=== PATIENT | male | born 1985 | race Caucasian/White ===

== ENCOUNTER 2019-10-12 02:48 | Emergency (ER) | payer BC ==
[~2019-10-12] VITALS: Ht 175.3 cm; Wt 119.3 kg
[2019-10-12 02:55] VITALS: BP 135/77
--- NOTE | 2019-10-12 03:07 | NUR ---
TO ED 06, AMBULATORY.
--- NOTE | 2019-10-12 03:16 | NUR ---
34 Y/O MALE PRESENTS TO ED, C/O ABDOMINAL PAIN X1 DAY 12/12. PATIENT STATES PAIN HAS BEEN INTERMITTENT BUT WORSENING THIS MORNING. DENIES TAKING ANY MEDICATIONS FOR PAIN. C/O MILD NAUSEA AND VOMITING PRIOR COMING TO ED. BS ACTIVE X4 QUADRANTS. DENIES ANY SOB/DIFFICULTY BREATHING. DENIES CHEST PAIN. PT VSS. ERMD AWARE. WILL CONTINUE TO MONITOR.
[2019-10-12] MEDS ORDERED: NACL 0.9% 1,000 ML IV SCH (03:22)
[2019-10-12] MEDS ORDERED: ALUMINUM HYD/MAG/SIMETHICONE 30 ML, DICYCLOMINE HCL LIQUID 20 MG, LIDOCAINE VISCOUS 2% ... PO ONE ×3 (03:25)
[2019-10-12] MEDS ORDERED: ONDANSETRON 4 MG/2 ML VIAL IVP ONE (03:25)
[2019-10-12] MEDS ORDERED: KETOROLAC 30 MG/ML VIAL IVP ONE (03:25)
[2019-10-12 03:35] LABS: BASOPHILS # (AUTO) 0.1 K/uL (0.00-0.22); BASOPHILS % (AUTO) 0.7 % (0.0-2.0); EOSINOPHILS # (AUTO) 0.4 K/uL (0-0.4); EOSINOPHILS % (AUTO) 4.1 % (0.0-4.0); HEMATOCRIT 40.5 % (36-52); HEMOGLOBIN 13.8 g/dL (12.0-18.0); LYMPHOCYTES % (AUTO) 20.7 % (20.5-51.1); MEAN CORPUSCULAR HEMOGLOBIN 32 pg (27-31); MEAN CORPUSCULAR HGB CONC 34 g/dL (33-37); MONOCYTES # (AUTO) 0.9 K/uL (0.8-1.0); NEUTROPHILS # (AUTO) 6.2 K/uL (1.8-7.7); NEUTROPHILS % (AUTO) 65.5 % (42.2-75.2); PLATELET COUNT (AUTO) 304 K/uL (140-450); RED BLOOD CELL COUNT(AUTO) 4.31 MIL/uL (4.20-6.10); RED CELL DISTRIBUTION WIDTH 13.2 % (11.6-13.7); WHITE BLOOD COUNT (AUTO) 9.5 K/uL (4.8-10.8)
[2019-10-12] MEDS ORDERED: ALUMINUM HYD/MAG/SIMETHICONE 30 ML UDC ONE (03:36)
[2019-10-12] MEDS ORDERED: DICYCLOMINE HCL LIQUID 10 MG/5 ML UDC ONE (03:36)
[2019-10-12] MEDS ORDERED: LIDOCAINE VISCOUS 2% 20 ML UDC ONE (03:36)
[2019-10-12 03:55] LABS: APPEARANCE,URINE CLEAR (CLEAR); BILIRUBIN,URINE NEGATIVE (NEGATIVE); BLOOD, URINE NEGATIVE (NEGATIVE); COLOR,URINE YELLOW (YELLOW); LEUKOCYTE ESTERASE ,URINE NEGATIVE (NEGATIVE); NITRITE, URINE NEGATIVE (NEGATIVE); UGLUCOSE NEGATIVE (NEGATIVE)
--- NOTE | 2019-10-12 03:55 | NUR ---
URINE COLLECTED AND SENT TO LAB AT THIS TIME.
[2019-10-12 03:58] LABS: ALBUMIN 3.5 g/dL (3.4-5.0); ANION GAP 11.4 (8-16); CARBON DIOXIDE 27.6 mmol/L (21-32); TOTAL BILIRUBIN 0.5 mg/dL (0.0-1.0)
--- NOTE | 2019-10-12 04:05 | NUR ---
Dr. Monteiro examining patient.
[2019-10-12 06:00] VITALS: BP 126/66
--- NOTE | 2019-10-12 06:00 | NUR ---
PT DISCHARGED WITH PAPERWORK. EDUCATED PT REGARDING MEDICATIONS AND D/C INSTRUCTIONS. PT VERBALIZED UNDERSTANDING OF TEACHING. TOLD PT TO FOLLOW UP WITH PCP AND WHEN TO RETURN TO ED. PT AT STABLE CONDITION. ALL QUESTIONS ANSWERED.
--- NOTE | 2019-10-14 07:51 | NUR ---
LATE ENTRY- NORMAL SALINE 0.9% DISCONTINUED AT 0600.
== END 2019-10-12 06:00 | disposition home or self-care (01) ==
LOC: MED 02:48
DX: K29.20 Alcoholic gastritis without bleeding (principal); R11.10 Vomiting, unspecified; Z88.0 Allergy status to penicillin; Z98.890 Other specified postprocedural states
CPT/HCPCS: 36415; 80053; 81003; 82150; 83690; 85025; 96361; 96374; 96375; 99284; G0482; J1885; J2405; J7030; 99285; 99291

== ENCOUNTER 2020-08-04 17:25 | Emergency (ER) | payer BC ==
[~2020-08-04] VITALS: Ht 175.3 cm; Wt 120.2 kg
[2020-08-04 17:38] VITALS: BP 146/85
--- NOTE | 2020-08-04 17:42 | NUR ---
PT TO ER LOBBY TO WAIT FOR FURTHER EVALUATION.
--- NOTE | 2020-08-04 17:52 | NUR ---
35 Y/O MALE C/O LEFT UPPER TOOTHACHE 01/12 DESCRIBES SHARP/ACHING RADIATES INTO [place] X3DAYS. PT STATES HE SAW DENTIST YESTERDAY AND GIVEN A REFERRAL TO ENDODONTICS BUT UNABLE TO GET APPOINTMENT UNTIL 08/14/20. DENTIST TOLD TO PT TO COME TO ER IF PAIN WAS UNBEARABLE. PT STATES HE HAS NOT SLEPT IN 2 DAYS. PMH: PANCREATITIS ALLERGIES: PCN
--- NOTE | 2020-08-04 17:58 | NUR ---
SEBLE MAGANA IN TRIAGE WITH PT FOR FURTHER EVALUATION.
[2020-08-04] MEDS ORDERED: MORPHINE SULFATE 4 MG/ML SYR IM ONE (18:00)
[2020-08-04] MEDS ORDERED: CLIN300C6 PO ×2 (18:06→18:49)
[2020-08-04] MEDS ORDERED: ACET-8386 PO ×2 (18:06→18:49)
[2020-08-04 18:22] VITALS: BP 146/85
--- NOTE | 2020-08-04 18:22 | NUR ---
Patient discharged with v/s stable. Written and verbal after care instructions given and explained. Patient alert, oriented and verbalized understanding of instructions. Ambulatory with steady gait. All questions addressed prior to discharge. ID band removed. Patient advised to follow up with PMD. Rx of NORCO 5MG-325MG PO Q8H PRN, AND CLINDAMYCIN 300MG TID given. Patient educated on indication of medication including possible reaction and side effects. Opportunity to ask questions provided and answered.
== END 2020-08-04 18:22 | disposition home or self-care (01) ==
LOC: MED 17:25
DX: K08.89 Other specified disorders of teeth and supporting structures (principal); Z88.0 Allergy status to penicillin; Z79.899 Other long term (current) drug therapy
CPT/HCPCS: 96372; 99283; J2270

== ENCOUNTER 2020-09-05 20:05 | Emergency (ER) | payer BC ==
[~2020-09-05] VITALS: Ht 175.3 cm; Wt 120.2 kg
[~2020-09-05 20:05] MED LIST: ACET-8386 PO; CLIN300C6 PO
[2020-09-05 20:10] VITALS: BP 153/87
--- NOTE | 2020-09-05 20:16 | NUR ---
PT AMBULATED TO BED 07, STEADY GAIT
--- NOTE | 2020-09-05 20:20 | NUR ---
PT IS A 35 Y.O. MALE BIB SELF C/O LEFT SIDED TOOTH PAIN. PT STATES HE SHATTERED HIS TOOTH WEEKS AGO AND HAS NOT BEEN ABLE TO GET THE ROOT CANAL R/T INSURANCE ISSUES. PT STATES THE PAIN AT A SCALE OF 9/10. SEVERE PAIN X 3 DAYS. PRECIPITATING FACTORS; LAYING SUPINE. PT TOOK IBUPROFEN AND TYLENOL WHICH DID NOT RELIEVE PAIN. PT DOES NOT APPEAR TO BE IN ANY DISTRESS. SITTING UP IN BED. PMH PANCREATITIS. ALLERGIES TO PENICILLIN.
--- NOTE | 2020-09-05 20:45 | NUR ---
DR. BARRERA AT BEDSIDE EVALUATING PT.
[2020-09-05] MEDS ORDERED: HYDROcodone/APAP 5/325 MG 1 TAB TAB PO ONE (21:10)
[2020-09-05] MEDS ORDERED: CLINDAMYCIN 150 MG CAP PO ONE (21:10)
[2020-09-05] MEDS ORDERED: KETOROLAC 30 MG/ML VIAL IM ONE (21:10)
[2020-09-05] MEDS ORDERED: CLIN300C2 PO (21:17)
[2020-09-05] MEDS ORDERED: ACET-8386 PO ×2 (21:17→22:06)
--- NOTE | 2020-09-05 21:35 | NUR ---
PT STATES PAIN HAS IMPROVED. PAIN IN THE LEFT TOOTH AT A SCALE OF 2/10. WILL CONTINUE TO MONITOR.
[2020-09-05 21:42] VITALS: BP 153/87
--- NOTE | 2020-09-05 21:43 | NUR ---
Patient discharged with v/s stable. Written and verbal after care instructions given and explained. Patient alert, oriented and verbalized understanding of instructions. Ambulatory with steady gait. All questions addressed prior to discharge. ID band removed. Patient advised to follow up with PMD. Rx of CLEOCIN AND HYDROCODONE given. Patient educated on indication of medication including possible reaction and side effects. Opportunity to ask questions provided and answered.
== END 2020-09-05 21:42 | disposition home or self-care (01) ==
LOC: MED 20:05
DX: K08.89 Other specified disorders of teeth and supporting structures (principal); Z88.0 Allergy status to penicillin; Z79.899 Other long term (current) drug therapy
CPT/HCPCS: 96372; 99283; J1885

== ENCOUNTER 2020-11-02 18:26 | Emergency (ER) | payer BC ==
[~2020-11-02] VITALS: Ht 180.3 cm; Wt 113.4 kg
[~2020-11-02 18:26] MED LIST changes: +CLIN300C2 PO
[2020-11-02 18:32] VITALS: BP 145/93
--- NOTE | 2020-11-02 18:37 | NUR ---
Pt ambulated to ER bed 5 with a steady gait.
--- NOTE | 2020-11-02 18:42 | NUR ---
35 Y/O MALE C/O PENILE PAIN 01/12 DESCRIBES ACHING X3DAYS WHICH IS NOW INCREASING SINCE. PT STATES HE WAS AT [facility] THIS WEEKEND, HAD SEXUAL INTERCOURSE AND "BENT HIS PENIS IN HALF". PT STATES HE HAS HAD ACTIVE BLEEDING SINCE AND STOPPED X1HR AGO. PT STATES HE WAS SEE IN [place] ER PRESCRIBED PAIN MEDICATIONS AND TOLD TO SEE A UROLOGIST. PT STATES HE TOOK 1 NORCO X1HR AGO. PT DENIES FEVER/CHILLS. PT DENIES SYNCOPAL EPISODE. DENIES PMH NKA
--- NOTE | 2020-11-02 19:17 | NUR ---
Gave report to SHARI Luis. Transfer of care at this time.
--- NOTE | 2020-11-02 19:28 | NUR ---
ERMD AT BEDSIDE WITH RN, PERFORMING EXAMINATION.
--- NOTE | 2020-11-02 19:29 | NUR ---
Dr. Rodriguez examining patient.
--- NOTE | 2020-11-02 19:31 | NUR ---
REPORT RECIEVED FROM SHARI MAHAN FOR CONTINUITY OF CARE.
--- NOTE | 2020-11-02 19:32 | NUR ---
PT AMBULATED TO RESTROOM WITH STEADY AND EVEN GAIT TO COLLECT URINE SAMPLE.
[2020-11-02] MEDS ORDERED: KETOROLAC 30 MG/ML VIAL IM ONE (19:40)
--- NOTE | 2020-11-02 19:45 | NUR ---
lab at bedside, urine sampler tester given to hesham molder labels, at bedside,
[2020-11-02 20:04] LABS: BASOPHILS # (AUTO) 0.1 K/uL (0.00-0.22); BASOPHILS % (AUTO) 1.1 % (0.0-2.0); EOSINOPHILS # (AUTO) 0.2 K/uL (0-0.4); EOSINOPHILS % (AUTO) 2.4 % (0.0-4.0); HEMATOCRIT 39.5 % (36-52); HEMOGLOBIN 13.6 g/dL (12.0-18.0); LYMPHOCYTES # (AUTO) 2.2 K/uL (2.0-11.5); LYMPHOCYTES % (AUTO) 29.3 % (20.5-51.1); MEAN CORPUSCULAR HEMOGLOBIN 33 pg (27-31); MEAN CORPUSCULAR HGB CONC 35 g/dL (33-37); MEAN CORPUSCULAR VOLUME 95.2 fL (80-94); MONOCYTES # (AUTO) 0.8 K/uL (0.8-1.0); NEUTROPHILS # (AUTO) 4.3 K/uL (1.8-7.7); NEUTROPHILS % (AUTO) 57.2 % (42.2-75.2); PLATELET COUNT (AUTO) 331 K/uL (140-450); RED BLOOD CELL COUNT(AUTO) 4.15 MIL/uL (4.20-6.10); WHITE BLOOD COUNT (AUTO) 7.6 K/uL (4.8-10.8)
[2020-11-02 20:10] LABS: ANION GAP 13.4 (8-16); CARBON DIOXIDE 26.6 mmol/L (21-32)
[2020-11-02 21:03] LABS: APPEARANCE,URINE CLEAR (CLEAR); BILIRUBIN,URINE NEGATIVE (NEGATIVE); BLOOD, URINE NEGATIVE (NEGATIVE); COLOR,URINE YELLOW (YELLOW); LEUKOCYTE ESTERASE ,URINE NEGATIVE (NEGATIVE); NITRITE, URINE NEGATIVE (NEGATIVE); PH,URINE 5.5 (5.0-9.0); UGLUCOSE NEGATIVE (NEGATIVE)
--- NOTE | 2020-11-02 21:04 | NUR ---
BEDSIDE BLADDER SCANNER PERFORMED PER ERMD ORDER. RESIDUAL URINE 96CC NOTED. ERMD MADE AWARE. NO NEW ORDERS AT THIS TIME.
--- NOTE | 2020-11-02 21:04 | NUR ---
PT AMBULATED TO RESTROOM WITH EVEN AND STEADY GAIT.
[2020-11-02] MEDS ORDERED: ACET-8386 PO (21:15)
--- NOTE | 2020-11-02 21:33 | NUR ---
ERMD AT BEDSIDE DISCUSSING RESULTS/D'C INFORMATION.
[2020-11-02 21:38] VITALS: BP 145/93
== END 2020-11-02 21:35 | disposition home or self-care (01) ==
LOC: MED 18:26
DX: S30.93XA Unspecified superficial injury of penis, initial encounter (principal); Z88.0 Allergy status to penicillin; Z79.899 Other long term (current) drug therapy; X58.XXXA Exposure to other specified factors, initial encounter; Y93.89 Activity, other specified; Y92.89 Other specified places as the place of occurrence of the external cause; Y99.8 Other external cause status
CPT/HCPCS: 36415; 80048; 81003; 85025; 96372; 99283; J1885; 99284

== ENCOUNTER 2022-07-26 01:05 | Emergency (ER) | payer SELFPAY ==
[~2022-07-26] VITALS: Ht 175.3 cm; Wt 122.5 kg
[~2022-07-26 01:05] MED LIST changes: -ACET-8386 PO; +ACET-8905 PO; -CLIN300C6 PO; +CLIN300C61 PO
[2022-07-26 01:44] VITALS: BP 129/82
--- NOTE | 2022-07-26 01:49 | NUR ---
TO LOBBY FOLLOWING TRIAGE
--- NOTE | 2022-07-26 04:00 | NUR ---
CALLED TO ROOM, NO ANSWER. PT LWBS
== END 2022-07-26 04:00 | disposition left against medical advice (07) ==
LOC: MED 01:05
DX: M79.644 Pain in right finger(s) (principal); Z53.21 Procedure and treatment not carried out due to patient leaving prior to being seen by health care provider
CPT/HCPCS: 99281